=== PATIENT | female | born 1970 | race Caucasian/White ===

== ENCOUNTER 2016-11-30 08:17 | Emergency (ER) | payer OTHER, MEDICAID ==
[~2016-11-30] VITALS: Ht 188 cm; Wt 100.0 kg
[~2016-11-30 08:17] MED LIST: CIPROFLOXACN500 MG PO; CODEINE/GUAIFEN1 SOL PO; PREDNISONE10 MG PO; PYRIDIUM200 MG PO; VENTOLIN HFA IN; ZITHROMAX250 MG PO
[2016-11-30] MEDS ORDERED: XANAX0.25 MG PO (08:31)
[2016-11-30] MEDS ORDERED: NAPROSYN500 MG PO (11:11)
[2016-11-30] MEDS ORDERED: FLEXERIL PO (11:11)
[2016-11-30 11:14] VITALS: BP 162/89
== END 2016-11-30 11:17 | disposition home or self-care (01) | DRG 103 ==
LOC: ED 08:17
DX: R51 Headache (principal); F41.9 Anxiety disorder, unspecified; S13.9XXA Sprain of joints and ligaments of unspecified parts of neck, initial encounter; X58.XXXA Exposure to other specified factors, initial encounter

== ENCOUNTER 2017-09-26 15:54 | Emergency (ER) | payer OTHER, MEDICAID ==
[~2017-09-26] VITALS: Ht 188 cm; Wt 110.0 kg
[~2017-09-26 15:54] MED LIST changes: +FLEXERIL PO; +NAPROSYN500 MG PO; +XANAX0.25 MG PO
[2017-09-26 16:51] LABS: HEMATOCRIT 40.5 % (37.0-47.0); HEMOGLOBIN 13.1 g/dl (12.0-16.0); IMMATURE GRANULOCYTES 0.3 % (0.0-1.0); MEAN CORPUSCULAR HGB 32.7 pG CALC (26.0-32.0); MEAN CORPUSCULAR HGB CONC 32.3 g/L CALC (32.0-36.0); NEUT# 3.24 thou/uL (2.00-7.15); RED BLOOD COUNT 4.01 mill/uL (4.20-5.60); RED CELL DISTRI WIDTH 13.5 % (11.5-15.5)
[2017-09-26 16:53] LABS: COCAINE NEGATIVE (NEGATIVE); METHADONE NEGATIVE (NEGATIVE); TETRAHYDROCANNABIONOL POSITIVE (NEGATIVE); TRICYLIC ANTIDEPRESSANTS POSITIVE (NEGATIVE)
[2017-09-26 16:54] LABS: BARBITURATES NEGATIVE (NEGATIVE); OXCYCODONE NEGATIVE (NEGATIVE)
[2017-09-26 17:11] LABS: ALBUMIN 3.8 g/dL (3.2-5.0); ALKALINE PHOSPHATASE 110 u/l (38-126); ANION GAP 14 (6-22 (CALC)); BILIRUBIN, TOTAL 0.3 mg/dL (0.0-1.4); BUN 15 mg/dL (7-17); BUN/CREATININE RATIO 23 (12-20 (CALC)); CARBON DIOXIDE 24 mmol/l (22-30); CHLORIDE 110 mmol/l (95-108); CREATININE 0.7 mg/dL (0.5-1.0); ETHYL ALCOHOL 0 mg/dl (0-30); GFR > 60 ML/MIN (>=60 (CALC)); GFR FOR AFR.AMER. > 60 ML/MIN (>=60 (CALC)); SGOT/AST 22 u/l (14-36); SGPT/ALT 28 u/l (9-52); SODIUM 144 mmol/l (137-146); TOTAL PROTEIN 7.3 g/dL (6.3-8.2)
[2017-09-26 18:16] VITALS: BP 161/70
== END 2017-09-26 18:20 | disposition home or self-care (01) | DRG 605 ==
LOC: ED 15:54
PROVIDERS: Emergency Medicine
DX: S40.011A Contusion of right shoulder, initial encounter (principal); G89.29 Other chronic pain; S80.01XA Contusion of right knee, initial encounter; S80.211A Abrasion, right knee, initial encounter; S80.811A Abrasion, right lower leg, initial encounter; W10.8XXA Fall (on) (from) other stairs and steps, initial encounter; Y93.82 Activity, spectator at an event; Y92.39 Other specified sports and athletic area as the place of occurrence of the external cause; M25.522 Pain in left elbow; M25.521 Pain in right elbow

== ENCOUNTER 2017-12-17 09:05 | Emergency (ER) | payer OTHER, MEDICAID ==
[~2017-12-17] VITALS: Ht 188 cm; Wt 108.0 kg
[2017-12-17 09:49] LABS: HEMATOCRIT 39.8 % (37.0-47.0); HEMOGLOBIN 12.9 g/dl (12.0-16.0); IMMATURE GRANULOCYTES 0.5 % (0.0-1.0); MEAN CELL VOLUME 100.5 fL CALC (80.0-100.0); MEAN CORPUSCULAR HGB 32.6 pG CALC (26.0-32.0); MEAN CORPUSCULAR HGB CONC 32.4 g/L CALC (32.0-36.0); NEUT# 3.66 thou/uL (2.00-7.15); RED BLOOD COUNT 3.96 mill/uL (4.20-5.60); RED CELL DISTRI WIDTH 13.5 % (11.5-15.5)
[2017-12-17 11:22] LABS: ALBUMIN 3.8 g/dL (3.2-5.0); ALKALINE PHOSPHATASE 100 u/l (38-126); ANION GAP 14 (6-22 (CALC)); BILIRUBIN, TOTAL 0.4 mg/dL (0.0-1.4); BUN 9 mg/dL (7-17); BUN/CREATININE RATIO 17 (12-20 (CALC)); CARBON DIOXIDE 23 mmol/l (22-30); CHLORIDE 112 mmol/l (95-108); CREATININE 0.5 mg/dL (0.5-1.0); GFR > 60 ML/MIN (>=60 (CALC)); GFR FOR AFR.AMER. > 60 ML/MIN (>=60 (CALC)); POTASSIUM 3.9 mmol/l (3.5-5.1); SGOT/AST 36 u/l (14-36); SGPT/ALT 39 u/l (9-52); SODIUM 145 mmol/l (137-146); TOTAL PROTEIN 7.8 g/dL (6.3-8.2)
[2017-12-17] MEDS ORDERED: MOTRIN800 MG PO (13:20)
[2017-12-17] MEDS ORDERED: FLEXERIL PO (13:20)
[2017-12-17] MEDS ORDERED: PERCOCET 5/325M1 TAB PO (13:20)
[2017-12-17 13:25] VITALS: BP 158/78
[2017-12-17 14:19] LABS: BARBITURATES NEGATIVE (NEGATIVE); COCAINE NEGATIVE (NEGATIVE); METHADONE NEGATIVE (NEGATIVE); OXCYCODONE NEGATIVE (NEGATIVE); TETRAHYDROCANNABIONOL NEGATIVE (NEGATIVE); TRICYLIC ANTIDEPRESSANTS POSITIVE (NEGATIVE)
== END 2017-12-17 14:02 | disposition home or self-care (01) | DRG 605 ==
LOC: ED 09:05
PROVIDERS: Emergency Medicine
DX: S30.0XXA Contusion of lower back and pelvis, initial encounter (principal); J44.9 Chronic obstructive pulmonary disease, unspecified; M51.26 Other intervertebral disc displacement, lumbar region; W19.XXXA Unspecified fall, initial encounter; Y92.009 Unspecified place in unspecified non-institutional (private) residence as the place of occurrence of the external cause
CPT/HCPCS: J2060

== ENCOUNTER → 2018-04-22 | Outpatient (REF) | payer OTHER, MEDICAID ==
[~2018-04-22] MED LIST changes: +MOTRIN800 MG PO; +PERCOCET 5/325M1 TAB PO
== END | disposition home or self-care (01) | DRG 123 ==
LOC: MRI 08:09
PROVIDERS: ATTEND Nurse Practitioner Adult Health
DX: H57.02 Anisocoria (principal); R53.1 Weakness

== ENCOUNTER 2018-11-10 20:51 | Emergency (ER) | payer OTHER ==
[~2018-11-10] VITALS: Ht 185.4 cm; Wt 112.0 kg
[2018-11-10] MEDS ORDERED: SINGULAIR10 MG PO (21:47)
[2018-11-10 21:48] LABS: HEMOGLOBIN 12.2 g/dl (12.0-16.0); IMMATURE GRANULOCYTES 0.3 % (0.0-5.0); MEAN CELL VOLUME 99.7 fL CALC (80.0-100.0); MEAN CORPUSCULAR HGB CONC 32.1 g/L CALC (32.0-36.0); NEUT# 4.03 thou/uL (2.00-7.15); RED BLOOD COUNT 3.81 mill/uL (4.20-5.60); RED CELL DISTRI WIDTH 14.4 % (11.5-15.5)
[2018-11-10] MEDS ORDERED: IBUPROFEN600 MG PO (21:48)
[2018-11-10] MEDS ORDERED: NAPROXEN250 MG PO (21:48)
[2018-11-10 22:03] LABS: ALBUMIN 4.2 g/dL (3.2-5.0); ALKALINE PHOSPHATASE 108 u/l (38-126); ANION GAP 16 (6-22 (CALC)); BILIRUBIN, TOTAL 0.4 mg/dL (0.0-1.4); BUN 10 mg/dL (7-17); BUN/CREATININE RATIO 20 (12-20 (CALC)); CARBON DIOXIDE 21 mmol/l (22-30); CHLORIDE 111 mmol/l (95-108); CREATININE 0.5 mg/dL (0.5-1.0); GFR > 60 ML/MIN (>=60 (CALC)); GFR FOR AFR.AMER. > 60 ML/MIN (>=60 (CALC)); MAGNESIUM 1.8 mg/dL (1.6-2.3); POTASSIUM 3.9 mmol/l (3.5-5.1); SGOT/AST 32 u/l (14-36); SODIUM 144 mmol/l (137-146); TOTAL PROTEIN 8.1 g/dL (6.3-8.2)
[2018-11-10] MEDS ORDERED: PREDNISONE10 MG PO (22:15)
[2018-11-10 22:37] VITALS: BP 178/64
== END 2018-11-10 22:38 | disposition home or self-care (01) | DRG 203 ==
LOC: ED 20:51
PROVIDERS: Family Medicine
DX: J45.901 Unspecified asthma with (acute) exacerbation (principal); R05 Cough; R06.02 Shortness of breath

== ENCOUNTER 2019-08-29 | Emergency (ER) | payer OTHER ==
[~2019-08-29] MED LIST changes: +IBUPROFEN600 MG PO; +NAPROXEN250 MG PO; +SINGULAIR10 MG PO
[2019-08-29 20:56] LABS: IMMATURE GRANULOCYTES 0.5 % (0.0-5.0); MEAN CELL VOLUME 99.3 fL CALC (80.0-100.0); MEAN CORPUSCULAR HGB 31.2 pG CALC (26.0-32.0); MEAN CORPUSCULAR HGB CONC 31.4 g/L CALC (32.0-36.0); NEUT# 4.48 thou/uL (2.00-7.15); RED BLOOD COUNT 4.59 mill/uL (4.20-5.60); RED CELL DISTRI WIDTH 13.8 % (11.5-15.5)
[2019-08-29 20:59] LABS: URINE BILIRUBIN - DIPSTICK NEGATIVE (NEGATIVE); URINE BLOOD DIPSTICK LARGE (NEGATIVE); URINE COLOR YELLOW; URINE GLUCOSE - DIPSTICK NEGATIVE (NEGATIVE); URINE KETONE NEGATIVE (NEGATIVE); URINE NITRITE - DIPSTICK NEGATIVE (Negative); URINE PROTEIN - DIPSTICK 30 mg/dL (NEG-TRACE); URINE SPECIFIC GRAVITY 1.025; URINE UROBILINOGEN - DIPSTICK 0.2 E.U./dL (0.2)
[2019-08-29 21:01] LABS: URINE LEUK ESTERASE MODERATE (NEGATIVE)
[2019-08-29 21:01] LABS: HEMATOCRIT 45.6 % (37.0-47.0); HEMOGLOBIN 14.3 g/dl (12.0-16.0)
[2019-08-29 21:06] LABS: URINE RBC 25-50 RBC/hpf (0-5); URINE SQUAMOUS EPITHELIAL CELL FEW EPI/hpf (0-FEW); URINE WBC 50-100 WBC/hpf (0-5)
[2019-08-29 21:21] LABS: ALBUMIN 4.5 g/dL (3.2-5.0); ALKALINE PHOSPHATASE 125 u/l (38-126); AMYLASE 59 u/l (30-110); ANION GAP 16 (6-22 (CALC)); BILIRUBIN, TOTAL 0.5 mg/dL (0.0-1.4); BUN 12 mg/dL (7-17); BUN/CREATININE RATIO 22 (12-20 (CALC)); CARBON DIOXIDE 23 mmol/l (22-30); CHLORIDE 106 mmol/l (95-108); CREATININE 0.6 mg/dL (0.5-1.0); GFR > 60 ML/MIN (>=60 (CALC)); GFR FOR AFR.AMER. > 60 ML/MIN (>=60 (CALC)); LIPASE 120 u/l (23-300); POTASSIUM 4.6 mmol/l (3.5-5.1); SODIUM 141 mmol/l (137-146); TOTAL PROTEIN 9.4 g/dL (6.3-8.2)
[2019-08-29 21:22] LABS: SGOT/AST 84 u/l (14-36)
[2019-08-29] MEDS ORDERED: CEPHALEXIN500 MG PO (21:46)
[2019-08-29] MEDS ORDERED: ONDANSETRON4 MG PO (21:46)
== END 2019-08-29 22:37 | disposition home or self-care (01) | DRG 690 ==
PROVIDERS: Emergency Medicine
DX: N39.0 Urinary tract infection, site not specified (principal); L98.8 Other specified disorders of the skin and subcutaneous tissue; L08.9 Local infection of the skin and subcutaneous tissue, unspecified; F20.9 Schizophrenia, unspecified; J44.9 Chronic obstructive pulmonary disease, unspecified; B96.20 Unspecified Escherichia coli [E. coli] as the cause of diseases classified elsewhere; T50.906A Underdosing of unspecified drugs, medicaments and biological substances, initial encounter; Z16.12 Extended spectrum beta lactamase (ESBL) resistance; Z91.128 Patient's intentional underdosing of medication regimen for other reason

== ENCOUNTER 2019-09-30 | Emergency (ER) | payer OTHER ==
[~2019-09-30] MED LIST changes: +CEPHALEXIN500 MG PO; +ONDANSETRON4 MG PO
[2019-09-30] MEDS ORDERED: XANAX0.25 MG PO (12:14)
[2019-09-30] MEDS ORDERED: KEFLEX500 MG PO (12:20)
== END 2019-09-30 12:35 | disposition home or self-care (01) | DRG 607 ==
DX: L30.9 Dermatitis, unspecified (principal); F41.9 Anxiety disorder, unspecified; F31.9 Bipolar disorder, unspecified; J44.9 Chronic obstructive pulmonary disease, unspecified

== ENCOUNTER 2020-01-09 14:19 | Emergency (ER) | payer OTHER ==
[~2020-01-09] VITALS: Ht 188 cm; Wt 115.5 kg
[~2020-01-09 14:19] MED LIST changes: +KEFLEX500 MG PO
[2020-01-09 16:26] LABS: HEMATOCRIT 35.5 % (37.0-47.0); HEMOGLOBIN 11.4 g/dl (12.0-16.0); IMMATURE GRANULOCYTES 0.6 % (0.0-5.0); MEAN CELL VOLUME 91.5 fL CALC (80.0-100.0); MEAN CORPUSCULAR HGB 29.4 pG CALC (26.0-32.0); MEAN CORPUSCULAR HGB CONC 32.1 g/dL CAL (32.0-36.0); NEUT# 4.28 thou/uL (2.00-7.15); RED BLOOD COUNT 3.88 mill/uL (4.20-5.60); RED CELL DISTRI WIDTH 16.2 % (11.5-15.5)
[2020-01-09 16:38] LABS: HCG SERUM/URINE (NEG/POS) NEGATIVE (NEGATIVE)
[2020-01-09 16:42] LABS: ALBUMIN 4.2 g/dL (3.2-5.0); ALKALINE PHOSPHATASE 105 u/l (38-126); ANION GAP 13 (6-22 (CALC)); BILIRUBIN, TOTAL 0.5 mg/dL (0.0-1.4); BUN 16 mg/dL (7-17); BUN/CREATININE RATIO 26 (12-20 (CALC)); CARBON DIOXIDE 22 mmol/l (22-30); CHLORIDE 106 mmol/l (95-108); CREATININE 0.6 mg/dL (0.5-1.0); GFR > 60 ML/MIN (>=60 (CALC)); GFR FOR AFR.AMER. > 60 ML/MIN (>=60 (CALC)); POTASSIUM 4.1 mmol/l (3.5-5.1); SGOT/AST 57 u/l (14-36); SODIUM 137 mmol/l (137-146); TOTAL PROTEIN 8.7 g/dL (6.3-8.2)
[2020-01-09 18:40] VITALS: BP 158/70
[2020-01-09] MEDS ORDERED: PREDNISONE50 MG PO (19:08)
== END 2020-01-09 19:30 | disposition home or self-care (01) | DRG 203 ==
LOC: ED 14:19
PROVIDERS: Family Medicine
DX: J45.901 Unspecified asthma with (acute) exacerbation (principal); J44.9 Chronic obstructive pulmonary disease, unspecified; R07.9 Chest pain, unspecified; Z20.828 Contact with and (suspected) exposure to other viral communicable diseases
CPT/HCPCS: Q9967

== ENCOUNTER 2020-02-23 11:57 | Emergency (ER) | payer OTHER ==
[~2020-02-23] VITALS: Ht 188 cm; Wt 113.6 kg
[~2020-02-23 11:57] MED LIST changes: +PREDNISONE50 MG PO
[2020-02-23 12:35] LABS: HEMATOCRIT 39.8 % (37.0-47.0); HEMOGLOBIN 12.1 g/dl (12.0-16.0); IMMATURE GRANULOCYTES 0.4 % (0.0-5.0); MEAN CELL VOLUME 93.4 fL CALC (80.0-100.0); MEAN CORPUSCULAR HGB 28.4 pG CALC (26.0-32.0); MEAN CORPUSCULAR HGB CONC 30.4 g/dL CAL (32.0-36.0); NEUT# 3.25 thou/uL (2.00-7.15); RED BLOOD COUNT 4.26 mill/uL (4.20-5.60)
[2020-02-23 12:50] LABS: ACT PARTIAL THROMBO TIME 24.8 SECONDS (20.0-32.5); ALBUMIN 4.2 g/dL (3.2-5.0); ALKALINE PHOSPHATASE 92 u/l (38-126); ANION GAP 14 (6-22 (CALC)); BILIRUBIN, TOTAL 0.5 mg/dL (0.0-1.4); BUN 11 mg/dL (7-17); BUN/CREATININE RATIO 20 (12-20 (CALC)); CARBON DIOXIDE 22 mmol/l (22-30); CHLORIDE 103 mmol/l (95-108); CREATININE 0.6 mg/dL (0.5-1.0); GFR > 60 ML/MIN (>=60 (CALC)); GFR FOR AFR.AMER. > 60 ML/MIN (>=60 (CALC)); PROTHROMBIN TIME 10.4 SECONDS (9.0-12.5); SGOT/AST 43 u/l (14-36); SODIUM 136 mmol/l (137-146); TOTAL PROTEIN 8.4 g/dL (6.3-8.2)
[2020-02-23 15:02] VITALS: BP 170/70
== END 2020-02-23 15:02 | disposition home or self-care (01) | DRG 313 ==
LOC: ED 11:57
PROVIDERS: Student in an Organized Health Care Education/Training Program
DX: R07.9 Chest pain, unspecified (principal); J44.9 Chronic obstructive pulmonary disease, unspecified
CPT/HCPCS: Q9967

== ENCOUNTER 2020-07-08 20:29 | Emergency (ER) | payer OTHER ==
[~2020-07-08] VITALS: Ht 188 cm; Wt 104.0 kg
[2020-07-08 21:25] LABS: HEMATOCRIT 37.4 % (37.0-47.0); HEMOGLOBIN 11.7 g/dl (12.0-16.0); IMMATURE GRANULOCYTES 0.4 % (0.0-5.0); MEAN CELL VOLUME 96.4 fL CALC (80.0-100.0); MEAN CORPUSCULAR HGB 30.2 pG CALC (26.0-32.0); MEAN CORPUSCULAR HGB CONC 31.3 g/dL CAL (32.0-36.0); NEUT# 4.81 thou/uL (2.00-7.15); RED BLOOD COUNT 3.88 mill/uL (4.20-5.60)
[2020-07-08 21:40] LABS: URINE BILIRUBIN - DIPSTICK NEGATIVE (NEGATIVE); URINE BLOOD DIPSTICK NEGATIVE (NEGATIVE); URINE COLOR YELLOW; URINE GLUCOSE - DIPSTICK NEGATIVE (NEGATIVE); URINE KETONE NEGATIVE (NEGATIVE); URINE LEUK ESTERASE NEGATIVE (NEGATIVE); URINE NITRITE - DIPSTICK NEGATIVE (Negative); URINE PROTEIN - DIPSTICK NEGATIVE (NEG-TRACE)
[2020-07-08 21:43] LABS: ALBUMIN 4.4 g/dL (3.2-5.0); ALKALINE PHOSPHATASE 71 u/l (38-126); ANION GAP 13 (6-22 (CALC)); BILIRUBIN, TOTAL 0.4 mg/dL (0.0-1.4); BUN 8 mg/dL (7-17); BUN/CREATININE RATIO 11 (12-20 (CALC)); CARBON DIOXIDE 19 mmol/l (22-30); CHLORIDE 113 mmol/l (95-108); CREATININE 0.7 mg/dL (0.5-1.0); GFR > 60 ML/MIN (>=60 (CALC)); GFR FOR AFR.AMER. > 60 ML/MIN (>=60 (CALC)); POTASSIUM 3.8 mmol/l (3.5-5.1); SGOT/AST 25 u/l (14-36); SODIUM 141 mmol/l (137-146)
[2020-07-08 21:55] LABS: MYOGLOBIN 18 ng/mL (0 - 62)
[2020-07-09] MEDS ORDERED: NAPROXEN500 MG PO (01:16)
[2020-07-09] MEDS ORDERED: TOPAMAX100 MG PO (01:33)
[2020-07-09] MEDS ORDERED: RISPERIDONE2 MG PO (01:33)
[2020-07-09] MEDS ORDERED: PEPCID20 MG PO (01:34)
[2020-07-09] MEDS ORDERED: TRILEPTAL150 MG PO (01:34)
[2020-07-09 01:35] VITALS: BP 156/77
== END 2020-07-09 01:35 | disposition home or self-care (01) | DRG 313 ==
LOC: ED 20:29
PROVIDERS: Emergency Medicine
DX: R07.89 Other chest pain (principal); J44.9 Chronic obstructive pulmonary disease, unspecified; F31.9 Bipolar disorder, unspecified; F41.9 Anxiety disorder, unspecified; F95.2 Tourette's disorder

== ENCOUNTER 2021-08-13 22:11 | Emergency (ER) | payer OTHER ==
[~2021-08-13 22:11] MED LIST changes: +NAPROXEN500 MG PO; +PEPCID20 MG PO; +RISPERIDONE2 MG PO; +TOPAMAX100 MG PO; +TRILEPTAL150 MG PO
== END 2021-08-13 22:46 | disposition left against medical advice (07) | DRG 951 ==
LOC: ED 22:11 → LWOBS 22:46
DX: Z53.21 Procedure and treatment not carried out due to patient leaving prior to being seen by health care provider (principal)

== ENCOUNTER 2023-01-04 00:52 | Emergency (ER) | payer OTHER ==
[~2023-01-04] VITALS: Ht 188 cm; Wt 104.8 kg
[2023-01-04 02:06] LABS: BASO% 0.6 % (0-3); EOS% 10.1 % (0-8); HEMATOCRIT 37.9 % (37.0-47.0); HEMOGLOBIN 12.2 g/dl (12.0-16.0); IMMATURE GRANULOCYTES 0.3 % (0.0-5.0); LYMPH% 58.5 % (15-41); MEAN CELL VOLUME 95.9 fL CALC (80.0-100.0); MEAN CORPUSCULAR HGB 30.9 pG CALC (26.0-32.0); MEAN CORPUSCULAR HGB CONC 32.2 g/dL CAL (32.0-36.0); MONO% 7.5 % (2-13); NEUT# 1.49 thou/uL (2.00-7.15); RED BLOOD COUNT 3.95 mill/uL (4.20-5.60); RED CELL DISTRI WIDTH 13.6 % (11.5-15.5); URINE BILIRUBIN - DIPSTICK NEGATIVE (NEGATIVE); URINE BLOOD DIPSTICK NEGATIVE (NEGATIVE); URINE COLOR YELLOW; URINE GLUCOSE - DIPSTICK NEGATIVE (NEGATIVE); URINE KETONE NEGATIVE (NEGATIVE); URINE LEUK ESTERASE NEGATIVE (NEGATIVE); URINE PROTEIN - DIPSTICK NEGATIVE (NEG-TRACE); URINE UROBILINOGEN - DIPSTICK 0.2 E.U./dL (0.2)
[2023-01-04 02:08] LABS: URINE NITRITE - DIPSTICK NEGATIVE (Negative)
[2023-01-04 02:17] LABS: ALBUMIN 4.3 g/dL (3.2-5.0); ALKALINE PHOSPHATASE 89 u/l (38-126); ANION GAP 15 (6-22 (CALC)); BUN 12 mg/dL (7-17); BUN/CREATININE RATIO 22 (12-20 (CALC)); CARBON DIOXIDE 21 mmol/l (22-30); CHLORIDE 110 mmol/l (95-108); CREATININE 0.6 mg/dL (0.5-1.0); GFR FOR AFR.AMER. > 60 ML/MIN (>=60 (CALC)); GFR OTHER RACES > 60 ML/MIN (>=60 (CALC)); POTASSIUM 3.6 mmol/l (3.5-5.1); SGOT/AST 31 u/l (14-36); SODIUM 143 mmol/l (137-146); TOTAL PROTEIN 8.2 g/dL (6.3-8.2)
[2023-01-04 02:19] LABS: BILIRUBIN, TOTAL 0.1 mg/dL (0.02-1.3)
[2023-01-04 03:41] VITALS: BP 137/83
== END 2023-01-04 03:47 | disposition home or self-care (01) | DRG 370 ==
LOC: ED 00:52
PROVIDERS: Family Medicine
DX: S27.818A Other injury of esophagus (thoracic part), initial encounter (principal); R07.9 Chest pain, unspecified; J44.9 Chronic obstructive pulmonary disease, unspecified; F31.9 Bipolar disorder, unspecified; G62.9 Polyneuropathy, unspecified; X58.XXXA Exposure to other specified factors, initial encounter

== ENCOUNTER 2023-07-20 15:56 | Inpatient (IN) | payer OTHER ==
[~2023-07-20] VITALS: Ht 188 cm; Wt 112.2 kg
[~2023-07-20 15:56] MED LIST changes: +GABAPENTIN100 MG PO
[2023-07-20 16:33] LABS: BASO% 0.3 % (0-3); EOS% 3.1 % (0-8); HEMOGLOBIN 14.3 g/dl (12.0-16.0); IMMATURE GRANULOCYTES 0.3 % (0.0-5.0); LYMPH% 48.4 % (15-41); MEAN CELL VOLUME 97.8 fL CALC (80.0-100.0); MEAN CORPUSCULAR HGB 31.1 pG CALC (26.0-32.0); MEAN CORPUSCULAR HGB CONC 31.8 g/dL CAL (32.0-36.0); MONO% 5.5 % (2-13); NEUT# 3.03 thou/uL (2.00-7.15); NEUT% 42.4 % (42-76); RED BLOOD COUNT 4.6 mill/uL (4.20-5.60); RED CELL DISTRI WIDTH 14.2 % (11.5-15.5)
[2023-07-20] MEDS ORDERED: HYDROXYZ HCL50 MG PO (16:33)
[2023-07-20] MEDS ORDERED: VENTOLIN HFA108 MCG IN (16:34)
[2023-07-20 16:44] LABS: ALBUMIN 4.4 g/dL (3.2-5.0); ALKALINE PHOSPHATASE 90 u/l (38-126); ANION GAP 16 (6-22 (CALC)); BUN 13 mg/dL (7-17); BUN/CREATININE RATIO 23 (12-20 (CALC)); CARBON DIOXIDE 24 mmol/l (22-30); CHLORIDE 104 mmol/l (95-108); CHOLESTEROL HDL RATIO 5.8 (<4.4 (CALC)); CREATININE 0.6 mg/dL (0.5-1.0); GFR FOR AFR.AMER. > 60 ML/MIN (>=60 (CALC)); GFR OTHER RACES > 60 ML/MIN (>=60 (CALC)); HDL CHOLESTEROL 48 mg/dL (39.0-59.0); POTASSIUM 3.8 mmol/l (3.5-5.1); SGOT/AST 29 u/l (14-36); SODIUM 141 mmol/l (137-146); TOTAL CHOLESTEROL 276 mg/dl (0-199); TOTAL PROTEIN 8.7 g/dL (6.3-8.2); VLDL CHOLESTROL 82 mg/dl (2-49 (CALC))
[2023-07-20 16:45] LABS: BILIRUBIN, TOTAL 0.5 mg/dL (0.02-1.3); CALCULATED LDLCHOLESTEROL 146 mg/dL (62-129 (CALC)); TOTAL TRIGLYCERIDES 408 mg/dl (0-149)
[2023-07-20 16:47] LABS: PROTHROMBIN TIME 10.2 SECONDS (9.0-12.5)
[2023-07-20 18:54] VITALS: BP 152/65
[2023-07-20 19:01] VITALS: BP 130/51
[2023-07-20 19:16] VITALS: BP 138/53
[2023-07-20 20:35] LABS: URINE BILIRUBIN - DIPSTICK Negative (NEGATIVE); URINE BLOOD DIPSTICK Negative (NEGATIVE); URINE GLUCOSE - DIPSTICK Negative (NEGATIVE); URINE KETONE Trace mg/dL (NEGATIVE); URINE LEUK ESTERASE Negative (NEGATIVE); URINE NITRITE - DIPSTICK Negative (Negative); URINE PROTEIN - DIPSTICK Trace mg/dL (NEG-TRACE); URINE SPECIFIC GRAVITY >=1.030; URINE UROBILINOGEN - DIPSTICK 0.2 E.U./dL (0.2)
[2023-07-20 20:42] LABS: URINE COLOR Yellow
[2023-07-20] MEDS ORDERED: GABAPENTIN400 M2 PO (21:53)
[2023-07-20 23:22] VITALS: BP 127/41
[2023-07-20 23:24] VITALS: BP 125/38
[2023-07-20 23:47] VITALS: BP 118/37
[2023-07-21] VITALS (10 sets, daily range): BP systolic 105–154; BP diastolic 33–67
[2023-07-21 06:56] LABS: BASO% 0.4 % (0-3); EOS% 6.1 % (0-8); HEMOGLOBIN 12.6 g/dl (12.0-16.0); IMMATURE GRANULOCYTES 0.2 % (0.0-5.0); LYMPH% 58.6 % (15-41); MEAN CELL VOLUME 98.7 fL CALC (80.0-100.0); MEAN CORPUSCULAR HGB 31.9 pG CALC (26.0-32.0); MEAN CORPUSCULAR HGB CONC 32.3 g/dL CAL (32.0-36.0); MONO% 7.8 % (2-13); NEUT# 1.42 thou/uL (2.00-7.15); NEUT% 26.9 % (42-76); RED BLOOD COUNT 3.95 mill/uL (4.20-5.60)
[2023-07-21 07:11] LABS: ALBUMIN 3.6 g/dL (3.2-5.0); ALKALINE PHOSPHATASE 79 u/l (38-126); ANION GAP 15 (6-22 (CALC)); BILIRUBIN, TOTAL 0.4 mg/dL (0.02-1.3); BUN 16 mg/dL (7-17); BUN/CREATININE RATIO 32 (12-20 (CALC)); CALCULATED LDLCHOLESTEROL 136 mg/dL (62-129 (CALC)); CARBON DIOXIDE 21 mmol/l (22-30); CHLORIDE 109 mmol/l (95-108); CHOLESTEROL HDL RATIO 5.2 (<4.4 (CALC)); CREATININE 0.5 mg/dL (0.5-1.0); GFR FOR AFR.AMER. > 60 ML/MIN (>=60 (CALC)); GFR OTHER RACES > 60 ML/MIN (>=60 (CALC)); HDL CHOLESTEROL 43 mg/dL (39.0-59.0); MAGNESIUM 1.8 mg/dL (1.6-2.3); POTASSIUM 3.9 mmol/l (3.5-5.1); SGOT/AST 24 u/l (14-36); SODIUM 140 mmol/l (137-146); TOTAL CHOLESTEROL 226 mg/dl (0-199); TOTAL TRIGLYCERIDES 233 mg/dl (0-149); VLDL CHOLESTROL 47 mg/dl (2-49 (CALC))
[2023-07-21 07:19] LABS: TOTAL PROTEIN 6.7 g/dL (6.3-8.2)
[2023-07-21] MEDS ORDERED: ATORVASTATIN CA40 MG PO (16:38)
[2023-07-21] MEDS ORDERED: GABAPENTIN100 MG PO (16:39)
[2023-07-21] MEDS ORDERED: MOTRIN800 MG PO (16:39)
[2023-07-21] MEDS ORDERED: ASPIRIN 81 LOW81 MG PO (16:41)
[2023-07-21] MEDS ORDERED: CIPROFLOXACIN/D1 SUS AS ×2 (16:46→17:00)
[2023-07-21] MEDS ORDERED: COMPAZINE10 MG PO (16:48)
== END 2023-07-21 18:08 | disposition home or self-care (01) | DRG 93 ==
LOC: ED 15:56 → ED-I 17:30 → ED 19:17 → ICU 19:18
PROVIDERS: Nurse Practitioner; ADMIT Student in an Organized Health Care Education/Training Program; ATTEND Student in an Organized Health Care Education/Training Program
DX: R20.0 Anesthesia of skin (principal); R29.810 Facial weakness; R27.0 Ataxia, unspecified; R07.9 Chest pain, unspecified; H92.02 Otalgia, left ear; J44.9 Chronic obstructive pulmonary disease, unspecified; F31.9 Bipolar disorder, unspecified; F40.10 Social phobia, unspecified; G62.9 Polyneuropathy, unspecified; E78.5 Hyperlipidemia, unspecified; G43.909 Migraine, unspecified, not intractable, without status migrainosus
CPT/HCPCS: J1650; S0164